=== PATIENT | male | born 1985 | race Caucasian/White ===

== ENCOUNTER 2020-05-02 09:47 | Emergency (ER) | payer SELFPAY ==
[~2020-05-02] VITALS: Ht 175.3 cm; Wt 86.2 kg
[2020-05-02 09:55] VITALS: BP 150/85
--- NOTE | 2020-05-02 09:55 | NUR ---
Pt ambulated to bed 06
--- NOTE | 2020-05-02 10:00 | NUR ---
34 y/o male from home presents with approx 12 inch superficial laceration to left forearm s/p falling on nail. No bleeding noted at this time. Skin warm and dry. 9/10 sharp/burning constant pain to forearm. Pt states when he fell he also hit mid back with 5/10 aching pain to back. Denies LOC. Awake and alert. VSS
--- NOTE | 2020-05-02 10:41 | NUR ---
Dr Biggs at bedside examining pt
--- NOTE | 2020-05-02 11:14 | NUR ---
APPLIED STERI STRIPS TO LEFT ARM WITHOUT ANY ISSUES
[2020-05-02 11:25] VITALS: BP 136/81
--- NOTE | 2020-05-02 11:26 | NUR ---
Patient discharged with v/s stable. Written and verbal after care instructions given and explained. Patient verbalized understanding. Ambulatory with steady gait. All questions addressed prior to discharge. Advised to follow up with PMD.
== END 2020-05-02 11:26 | disposition home or self-care (01) ==
LOC: MED 09:47
DX: S40.812A Abrasion of left upper arm, initial encounter (principal); X58.XXXA Exposure to other specified factors, initial encounter; Y93.89 Activity, other specified; Y92.89 Other specified places as the place of occurrence of the external cause; Y99.8 Other external cause status
CPT/HCPCS: 90471; 90715; 99283